=== PATIENT | male | born 1970 | race Caucasian/White ===

== ENCOUNTER 2025-03-06 03:23 | Emergency (ER) | payer OTHER, SELFPAY ==
[2025-03-06 03:27] VITALS: BP 152/99; PULSE 66; TEMP 36.8; O2SAT 97; BMI 21.6
[2025-03-06 03:36] VITALS: O2SAT 97
--- NOTE | 2025-03-06 03:42 | ED.GENADUL1 ---
HPI HPI - General Adult General Chief complaint: Dental/Oral Stated complaint: FALL, JAW PAIN Time Seen by Provider: 03/06/25 03:39 Source: patient Mode of arrival: walk-in Limitations: no limitations History of Present Illness HPI narrative: patient states he fell a couple of days ago striking his chin against the counter. Continues to have pain of his jaw on the right. Hurts to swallow. Denies neck pain or headache. No LOC Related Data Home Medications ?Medication ?Instructions ?Recorded ?Confirmed sacubitril 49 mg-valsartan 51 mg 1 tab PO BID 03/06/25 03/06/25 tablet (Entresto) warfarin 2.5 mg tablet 2.5 mg PO DAILY 03/06/25 03/06/25 Allergies Allergy/AdvReac Type Severity Reaction Status Date / Time No Known Drug Allergies Allergy Verified 03/06/25 03:31 Review of Systems ROS Status of ROS 10 or more systems reviewed and unremarkable except as noted in history and below PFSH PFSH Social History Little interest or pleasure in doing things: not at all Feeling down, depressed, or hopeless: not at all Exam Constitutional Vital Signs, click to edit/add: Last Vital Signs Temp 98.3 F 03/06/25 03:27 Pulse 66 03/06/25 03:27 Resp 16 03/06/25 03:27 BP 152/99 H 03/06/25 03:27 Pulse Ox 97 03/06/25 03:36 O2 Del Method Room Air 03/06/25 03:36 Common normals: no apparent distress, average body habitus, oriented x3, no limitations, healthy appearing, alert and well nourished [facility] Common normals: normocephalic and head/scalp atraumatic Face and sinus images:  1. mild tenderness Eye Common normals: PERRL and EOMs intact bilaterally Neck & C-Spine Common normals: full ROM and supple Respiratory Common normals: normal respiratory effort, no retractions, no use of accessory muscles and clear to auscultation bilaterally Cardio Common normals: regular rate, regular rhythm, S1 normal heart sound and S2 normal heart sound Back & Pelvis Common normals: thoracic and lumbar spine normal to inspection Other: C-spine nontender Extremity Common normals: normal to inspection and full ROM Neuro Common normals: oriented x3, CN's II-XII intact bilaterally, moves all extremities and no focal motor deficits Psych Appearance: grossly normal Course Vital Signs Vital signs: Vital Signs Temperature 98.3 F 03/06/25 03:27 Pulse Rate 66 03/06/25 03:27 Respiratory Rate 16 03/06/25 03:27 Blood Pressure 152/99 H 03/06/25 03:27 Pulse Oximetry 97 03/06/25 03:27 Oxygen Delivery Method Room Air 03/06/25 03:27 Temperature 98.3 F 03/06/25 03:27 Pulse Rate 66 03/06/25 03:27 Respiratory Rate 16 03/06/25 03:27 Blood Pressure 152/99 H 03/06/25 03:27 Pulse Oximetry 97 03/06/25 03:36 Oxygen Delivery Method Room Air 03/06/25 03:36 Medical Decision Making MDM Narrative Medical decision making narrative: patient presents 2 days after a fall and injury to the right mandible. complains of pain with swallowing but is able to swallow. Denies pain of his neck CT with evidence of mandible right contusion. soft tissue neck film is normal. Patient advised to use tylenol and follow up with his doctor Discharge Plan Discharge Chief Complaint: Dental/Oral Clinical Impression: Contusion of face Patient Disposition: Home, Self-Care Prescriptions / Home Meds: No Action warfarin 2.5 mg tablet 2.5 mg PO DAILY sacubitril-valsartan [Entresto] 49-51 mg tablet 1 tab PO BID Print Language: Malay Instructions: Facial Contusion (ED) Additional Instructions: use tylenol for pain and followup with your doctor for recheck Referrals: Physician,Non-Staff, MD [Primary Care Provider] - 1 week
== END 2025-03-06 06:19 | disposition home or self-care (01) ==
PROVIDERS: Emergency Provider Internal Medicine
DX: S00.83XA Contusion of other part of head, initial encounter (principal); W18.39XA Other fall on same level, initial encounter; W22.09XA Striking against other stationary object, initial encounter
CPT/HCPCS: 70486; 70491; 76376; 99284; Q9967